=== PATIENT | female | born 1930 | race Caucasian/White ===

== ENCOUNTER 2018-11-06 08:16 | Observation (INO) | payer MEDICARE ==
[~2018-11-06] VITALS: Ht 167.6 cm; Wt 79.4 kg
--- NOTE | 2018-11-06 11:05 | EKG ---
[facility] [address] [facility] [place], [place] [address] Signed Sinus rhythm with occasional premature ventricular complexes Left axis deviation Abnormal ECG No previous ECGs available Confirmed by RAMSEY CASTELLANO DO ([id number]) on 11/06/2018 11:05:03 AM Electronically Signed By: RAMSEY CASTELLANO DO 11/06/18 1105 PATIENT NAME: ADDY LENTZ Electrocardiogram DATE OF : 34 PHYSICIAN: RAMSEY CASTELLANO DO REPORT #: [id number] REPORT IS CONFIDENTIAL AND NOT TO BE RELEASED WITHOUT AUTHORIZATION
[2018-11-07] MEDS ORDERED: LISINOPRIL40 MG PO (07:58)
[2018-11-07] MEDS ORDERED: ALENDRONATE SOD70 MG PO (07:59)
[2018-11-07] MEDS ORDERED: MAXZIDE 37.5 MG-1 EA PO (07:59)
[2018-11-07] MEDS ORDERED: CLOBETASOL PROP50 ML TOP (08:00)
[2018-11-07] MEDS ORDERED: METOPROLOL SUCC25 MG PO (10:25)
== END 2018-11-07 11:00 | disposition home or self-care (01) ==
LOC: ED 08:16 → MS 08:19
PROVIDERS: ADMIT Student in an Organized Health Care Education/Training Program
DX: R55 Syncope and collapse (principal); S05.41XA Penetrating wound of orbit with or without foreign body, right eye, initial encounter; S02.31XA Fracture of orbital floor, right side, initial encounter for closed fracture; I10 Essential (primary) hypertension; M81.0 Age-related osteoporosis without current pathological fracture; I47.1 Supraventricular tachycardia; W10.9XXA Fall (on) (from) unspecified stairs and steps, initial encounter; Y92.029 Unspecified place in mobile home as the place of occurrence of the external cause; Z79.83 Long term (current) use of bisphosphonates; Z79.899 Other long term (current) drug therapy
CPT/HCPCS: 12013; 36415; 70450; 70486; 71045; 72125; 73110; 73560; 80053; 81001; 83605; 83735; 84484; 85025; 93005; 93010; 97161; 99285-25; G0378; J2270; J2405; J7030; J7120